=== PATIENT | male | born 1980 | race Caucasian/White ===

== ENCOUNTER 2022-02-11 12:37 | Emergency (ER) | payer OTHER ==
[2022-02-11 12:56] VITALS: BP 124/80; PULSE 62; TEMP 97.8; BMI 25.8
[2022-02-11] MEDS ORDERED: METHOCARBAMOL 500 MG TABLET PO ONE (13:40)
[2022-02-11] MEDS ORDERED: KETOROLAC TROMETHAMINE 30 MG/1 ML VIAL IM ONE (13:40)
[2022-02-11] MEDS ORDERED: METHOCARBAMOL 500 MG TABLET ONE (13:44)
[2022-02-11] MEDS ORDERED: KETOROLAC TROMETHAMINE 30 MG/1 ML VIAL ONE (13:44)
== END 2022-02-11 13:53 | disposition home or self-care (01) ==
LOC: JERFT 12:37
PROC: 3E0233Z Introduction of Anti-inflammatory into Muscle, Percutaneous Approach (ICD-10-PCS; principal; 2022-02-11)
DX: M54.2 Cervicalgia (principal)
CPT/HCPCS: 99283-25